=== PATIENT | female | born 1980 | race African-American/Black ===

== ENCOUNTER 2025-07-29 10:43 | Emergency (ER) | payer MEDICAID, OTHER ==
[~2025-07-29] VITALS: Ht 170.2 cm; Wt 76.0 kg
[2025-07-29 10:50] VITALS: O2SAT 99
[2025-07-29 11:58] LABS: CLARITY URINE CLOUDY (CLEAR); COLOR URINE YELLOW (YELLOW); GLUCOSE URINE NEGATIVE (NEGATIVE); KETONES URINE 2+ (NEGATIVE); LEUKOCYTE ESTERASE URINE TRACE (NEGATIVE); NITRITE URINE NEGATIVE (NEGATIVE); OCCULT BLOOD URINE 1+ (NEGATIVE); PH URINE 5.5 (4.5-8.0); PROTEIN URINE 2+ (NEGATIVE); SPECIFIC GRAVITY URINE 1.016 (1.005-1.030); UROBILINOGEN URINE 1.0 E.U./dL (0.2-1.0)
[2025-07-29] MEDS ORDERED: KETOROLAC 15MG/ML VIAL IM ONE (12:00)
[2025-07-29 12:19] LABS: BASOPHILS % 0.2 % (0.0-2.0); EOSINOPHILS % 1.1 % (0.0-5.0); HEMATOCRIT. 38.5 % (36.0-48.0); HEMOGLOBIN. 13.0 g/dL (12.0-16.0); LYMPHOCYTES % 27.4 % (20.0-50.0); MEAN PLATELET VOLUME 10.9 fl (7.4-10.4); MONOCYTES % 6.4 % (2.0-8.0); NEUTROPHILS % 64.9 % (40.0-76.0); PLATELET 189 x1000/uL (130-400); RED BLOOD CELL COUNT 4.58 mill/uL (4.2-5.4); RED CELL DISTRIBUTION WIDTH 15.6 % (11.6-14.6)
[2025-07-29 12:21] LABS: SQUAMOUS EPITHELIAL CELL URINE 3+ /lpf (RARE/1+)
[2025-07-29 12:23] LABS: BACTERIA URINE 1+; RBC URINE 0-2 /hpf (0-2); WBC URINE 0-2 /hpf (0-2)
[2025-07-29 12:31] LABS: HCG SCREEN NEGATIVE
[2025-07-29 12:34] LABS: CREATININE 0.9 mg/dL (0.6-1.0); UREA NITROGEN BLOOD 11 mg/dL (9-23)
[2025-07-29] MEDS: KETOROLAC 15MG/ML VIAL IM SCH (13:06)
[2025-07-29] MEDS ORDERED: KETOROLAC 15MG/ML VIAL IM SCH (13:15)
[2025-07-29] MEDS ORDERED: CEPH500C2 MT (13:35)
[2025-07-29] MEDS ORDERED: DOXY100C5 MT (13:45)
[2025-07-29 14:10] VITALS: BP 138/78; PULSE 89; RESP 15; TEMP 36.7; O2SAT 99
[2025-07-29] MEDS: CEFTRIAXONE SODIUM 500MG VIAL IM ONE (14:12)
[2025-07-29] MEDS: DOXYCYCLINE HYCLATE 100MG CAPSULE PO ONE (14:12)
[2025-08-01 04:12] LABS: CHLAMYDIA TRACHOMATIS NAA Negative (Negative); NEISSERIA GONORRHOEAE NAA Negative (Negative)
== END 2025-07-29 14:42 | disposition home or self-care (01) ==
LOC: ER 10:43
DX: N39.0 Urinary tract infection, site not specified (principal); F14.90 Cocaine use, unspecified, uncomplicated; F12.90 Cannabis use, unspecified, uncomplicated; Z11.3 Encounter for screening for infections with a predominantly sexual mode of transmission
CPT/HCPCS: 87491; 87591; 80048; 81003; 81025; 84703; 85025; 36415; 74176; 93005; 96372; 99285; J0696; J1885; Z7610

== ENCOUNTER 2025-09-03 03:01 | Emergency (ER) | payer MEDICAID ==
[~2025-09-03] VITALS: Ht 170.2 cm; Wt 68.0 kg
[~2025-09-03 03:01] MED LIST: CEPH500C2 MT; DOXY100C5 MT
[2025-09-03 03:23] VITALS: O2SAT 99
[2025-09-03 03:43] LABS: BASOPHILS % 0.4 % (0.0-2.0); EOSINOPHILS % 1.2 % (0.0-5.0); HEMATOCRIT. 45.0 % (36.0-48.0); HEMOGLOBIN. 14.8 g/dL (12.0-16.0); LYMPHOCYTES % 34.0 % (20.0-50.0); MEAN PLATELET VOLUME 10.8 fl (7.4-10.4); MONOCYTES % 5.4 % (2.0-8.0); NEUTROPHILS % 59.0 % (40.0-76.0); PLATELET 163 x1000/uL (130-400); RED BLOOD CELL COUNT 5.27 mill/uL (4.2-5.4); RED CELL DISTRIBUTION WIDTH 15.3 % (11.6-14.6)
[2025-09-03 03:56] LABS: CREATININE 0.9 mg/dL (0.6-1.0); UREA NITROGEN BLOOD 9 mg/dL (9-23)
[2025-09-03 03:58] LABS: TROPONIN I HIGH SENSITIVITY 13 ng/L (3.0-34)
[2025-09-03 04:42] LABS: ASPARTATE AMINOTRANSFERASE 22 IU/L (<34); BILIRUBIN DIRECT 0.1 mg/dL (<=3.0); BILIRUBIN TOTAL 0.5 mg/dL (0.1-1.0); PROTEIN TOTAL 7.4 g/dL (6.0-8.3)
[2025-09-03 05:01] LABS: HCG SCREEN NEGATIVE
[2025-09-03] MEDS ORDERED: CEFP100T9 MT (09:42)
[2025-09-03 10:00] VITALS: BP 164/89; PULSE 87; RESP 16; TEMP 36.5; O2SAT 98
== END 2025-09-03 10:05 | disposition home or self-care (01) ==
LOC: ER 03:01
DX: R07.89 Other chest pain (principal); N93.9 Abnormal uterine and vaginal bleeding, unspecified; I10 Essential (primary) hypertension; J45.909 Unspecified asthma, uncomplicated; Q87.418 Marfan syndrome with other cardiovascular manifestations
CPT/HCPCS: 80076; 80048; 84703; 83690; 85025; 84484; 36415; 71045; 76856; 93005; 99285; Z7610